=== PATIENT | male | born 1960 | race Caucasian/White ===

== ENCOUNTER 2022-05-25 15:16 | Outpatient (CLI) | payer BC, SELFPAY ==
[2022-05-25 15:56] LABS: Albumin* 4.8 g/dL (3.3-5.0); Chloride* 101 mmol/L (96-114); Sodium* 136 mmol/L (135-149)
[2022-05-25 15:57] LABS: Potassium* 5.2 mmol/L (3.6-5.1)
[2022-05-25 15:59] LABS: Alanine Aminotransferase* 25 U/L (4-50); Alkaline Phosphatase* 59 U/L (40-150); Aspartate Amino Transferase* 29 U/L (12-35); Bilirubin Total* 0.6 mg/dL (0.1-1.5); Blood Urea Nitrogen* 24 mg/dL (7-30); Carbon Dioxide* 28 mmol/L (20-32); Cholesterol* 229 mg/dL (90-199); Creatinine* 1.2 mg/dL (0.5-1.5); Estimated Glomerular Filt Rate 69 ml/min; Glucose* 113 mg/dL (60-115); Total Protein* 7.3 g/dL (6.0-8.3); Triglycerides* 146 mg/dL (40-149)
[2022-05-25 16:00] LABS: Calcium* 8.4 mg/dL (8.4-10.6); HDL Cholesterol* 56 mg/dL (>=40); LDL Cholesterol Calculated 144 mg/dL (<100)
[2022-05-25 19:50] LABS: PSA Screen* 1.57 ng/mL (0.10-4.00)
== END 2022-05-25 15:17 | disposition home or self-care (01) ==
PROVIDERS: PCP Family Medicine; Visit Provider Family Medicine
DX: Z00.00 Encounter for general adult medical examination without abnormal findings (principal); E78.5 Hyperlipidemia, unspecified; I10 Essential (primary) hypertension; Z12.5 Encounter for screening for malignant neoplasm of prostate
CPT/HCPCS: 80053; 80061; 84153

== ENCOUNTER 2022-09-01 09:29 | Outpatient (CLI) | payer BC, SELFPAY ==
[2022-09-01 14:56] LABS: Albumin* 4.2 g/dL (3.3-5.0)
[2022-09-01 14:59] LABS: Bilirubin Direct* 0.2 mg/dL (0.0-0.5); Bilirubin Total* 0.7 mg/dL (0.1-1.5); Cholesterol* 149 mg/dL (90-199); Total Protein* 6.6 g/dL (6.0-8.3)
[2022-09-01 15:00] LABS: Alanine Aminotransferase* 42 U/L (4-50); Alkaline Phosphatase* 40 U/L (40-150); Aspartate Amino Transferase* 33 U/L (12-35); HDL Cholesterol* 56 mg/dL (>=40); LDL Cholesterol Calculated 68 mg/dL (<100); Triglycerides* 127 mg/dL (40-149)
== END 2022-09-01 09:30 | disposition home or self-care (01) ==
PROVIDERS: PCP Family Medicine; Visit Provider Family Medicine
DX: E78.5 Hyperlipidemia, unspecified (principal)
CPT/HCPCS: 80061; 80076

== ENCOUNTER 2023-04-08 06:26 | Day surgery (SDC) | payer OTHER, BC, SELFPAY ==
[2023-04-08] VITALS (13 sets, daily range): BP systolic 112–158; BP diastolic 71–91; PULSE 61–69; RESP 14–16; TEMP 36.2–36.8; O2SAT 94–98; BMI 32.3
--- NOTE | 2023-04-08 07:32 | W.PM.H&PU ---
History & Physical Update History & Physical Update H&P Reviewed and patient assessed: No changes noted
--- NOTE | 2023-04-08 07:43 | PM.ORPRC ---
Procedure Note Date of procedure: 04/08/23 Procedure: PREOPERATIVE DIAGNOSIS: 1. Right carpal tunnel syndrome POSTOPERATIVE DIAGNOSIS: 1. Right carpal tunnel syndrome PROCEDURE: 1. Right open carpal tunnel release SURGEON: Rafy Victoria MD. NUCLEAR WEAPONS MECHANICAL SPECIALIST: Lizett Gaspar P.A.-C. - An dietary assistant was critical for this case to aid in patient positioning, tissue retraction, limb manipulation/positioning, and closure. ANESTHESIA: Local anesthetic IMPLANTS: None TOURNIQUET: 16 minutes at 250 mmHg COMPLICATIONS: None evident INDICATIONS: The patient is a pleasant 62-year-old male with history of bilateral, right worse than left carpal tunnel syndrome. Symptoms have not improved with conservative measures and patient interested in surgical for treatment for symptomatic relief. Prior to surgery risks and benefits of procedure were discussed with patient all questions were answered informed consent was obtained. DESCRIPTION OF PROCEDURE: Patient was seen preoperatively and operative site was marked. Patient was then brought to the operating room placed in supine position on the OR table. A tourniquet was placed on the patient's right arm and right upper extremity was prepped and draped in usual sterile fashion. A surgical time-out was performed confirming patient name, procedure, and location. The subcutaneous tissues overlying the right carpal tunnel were injected with combination of 1% lidocaine and 0.25% bupivacaine. Operative extremity was then elevated and exsanguinated with an Esmarch, and tourniquet was inflated to 250 mmHg. A skin incision measuring approximately 3-4 cm was made in line with the ring finger extending from the distal wrist flexion crease to Doan's cardinal line. Blunt dissection was used to dissect through subcutaneous tissues and palmar fascia. Transverse carpal ligament was identified and was sharply incised proximally with care taken to protect the underlying median nerve. The transverse carpal ligament was then sharply divided along its ulnar border using tenotomy scissors and a [place] ge[place] blade with care taken to protect the underlying median nerve. Once the transverse carpal ligament was divided, the antebrachial fascia was released proximally. Wound was then irrigated with normal saline and tourniquet was released. Total tourniquet time was 16 minutes. Hemostasis was achieved with bipolar electrocautery. Skin incision was closed with 4-0 nylon horizontal mattress sutures, and a sterile dressing was applied. Patient was then transferred to the recovery room in stable condition. POSTOPERATIVE PLAN: 1. Patient will be discharged to home day of surgery. 2. They were given instructions for wound care and finger range of motion exercises. 3. Return operating room in 2 weeks for left carpal tunnel release and right hand suture removal.
[2023-04-08] MEDS: LIDOCAINE 1% MDV 7 ML INJECTION (07:45)
[2023-04-08] MEDS: BUPIVACAINE 0.25% 30 ML 7 ML INJECTION (07:45)
[2023-04-08] MEDS: BACITRACIN OINTMENT BULK TUBE 1 APPLIC TOPICAL (08:20)
--- NOTE | 2023-04-08 08:59 | SUR.PHASEII ---
Pt tolerated ice water and verbalized readiness to be discharged home.
== END 2023-04-08 08:55 | disposition home or self-care (01) ==
PROVIDERS: PCP Family Medicine; Visit Provider Orthopaedic Surgery
PROC: (CPT 64721; principal; 2023-04-08 07:30)
DX: G56.01 Carpal tunnel syndrome, right upper limb (principal)
CPT/HCPCS: 64721; J0665

== ENCOUNTER 2023-04-20 07:54 | Day surgery (SDC) | payer OTHER, SELFPAY ==
[2023-04-20] VITALS (10 sets, daily range): BP systolic 110–128; BP diastolic 73–85; PULSE 61–74; RESP 16; TEMP 36.5–36.7; O2SAT 94–98; BMI 32.4
--- NOTE | 2023-04-20 08:22 | W.PM.H&PU ---
History & Physical Update History & Physical Update H&P Reviewed and patient assessed: No changes noted
--- NOTE | 2023-04-20 08:23 | P.ORPRC_ITS ---
Procedure Note Date of procedure: 04/20/23 Procedure: PREOPERATIVE DIAGNOSIS: 1. Left carpal tunnel syndrome POSTOPERATIVE DIAGNOSIS: 1. Left carpal tunnel syndrome PROCEDURE: 1. Left open carpal tunnel release SURGEON: Rafy Victoria MD. HOGSHEAD HEAD MATCHER: Osvaldo Dickerson P.A.-C. An family and divorce legal assistant was critical for this case to aid in patient positioning, tissue retraction, limb manipulation/positioning, and closure. ANESTHESIA: Local anesthetic IMPLANTS: None TOURNIQUET: Not used COMPLICATIONS: None evident ESTIMATED BLOOD LOSS: 2 mL INDICATIONS: The patient is a pleasant 62-year-old male with history of bilateral, right worse than left carpal tunnel syndrome. Symptoms have not improved with conservative measures and patient interested in surgical for treatment for symptomatic relief. Prior to surgery risks and benefits of procedure were discussed with patient all questions were answered informed consent was obtained. DESCRIPTION OF PROCEDURE: Patient was seen preoperatively and operative site was marked. Patient was then brought to the operating room placed in supine position on the OR table. A tourniquet was placed on the patient's left arm but was not used during course of procedure. The left upper extremity was prepped and draped in usual sterile fashion. A surgical time-out was performed confirming patient name, procedure, and location. The subcutaneous tissues overlying the left carpal tunnel were injected with combination of 1% lidocaine with epinephrine and 0.25% bupivacaine. A skin incision measuring approximately 3-4 cm was made in line with the ring finger extending from the distal wrist flexion crease to Doan's cardinal line. Bipolar electrocautery was used to achieve hemostasis. Blunt dissection was used to dissect through subcutaneous tissues and palmar fascia. Transverse carpal ligament was identified and was sharply incised proximally with care taken to protect the underlying median nerve. The transverse carpal ligament was then sharply divided along its ulnar border using tenotomy scissors and a [place] blade with care taken to protect the underlying median nerve. Once the transverse carpal ligament was divided, the antebrachial fascia was released proximally. Wound was then irrigated with normal saline. Skin incision was closed with 4-0 nylon horizontal mattress sutures, and a sterile dressing was applied. Patient was then transferred to the recovery room in stable condition. POSTOPERATIVE PLAN: 1. Patient will be discharged to home day of surgery. 2. They were given instructions for wound care and finger range of motion exercises. 3. Ice and Oral pain medications as needed for pain and swelling 4. Follow-up in Orthopedic clinic in 2 weeks for wound check and suture removal.
[2023-04-20] MEDS: BUPIVACAINE 0.25% 30 ML 5 ML INJECTION (08:39)
== END 2023-04-20 09:45 | disposition home or self-care (01) ==
PROVIDERS: PCP Family Medicine; Visit Provider Orthopaedic Surgery
PROC: (CPT 64721; principal; 2023-04-20 09:00)
DX: G56.02 Carpal tunnel syndrome, left upper limb (principal)
CPT/HCPCS: 64721; J0665

== ENCOUNTER 2023-08-16 10:05 | Outpatient (CLI) | payer BC, SELFPAY ==
--- NOTE | 2023-08-16 11:01 | W.ANESCHARGE ---
Anesthesia Charges Start Date/Time Anesthesia Start Date: 08/16/23 Anesthesia Start Time: 10:37 Stop Date/Time Anesthesia Stop Date: 08/16/23 Anesthesia Stop Time: 11:14
--- NOTE | 2023-08-16 11:16 | W.ANESCHARGE ---
Anesthesia Charges Start Date/Time Anesthesia Start Date: 08/16/23 Anesthesia Start Time: 10:37 Stop Date/Time Anesthesia Stop Date: 08/16/23 Anesthesia Stop Time: 11:14
== END 2023-08-16 10:06 | disposition home or self-care (01) ==
LOC: OP CLINIC 10:05
PROVIDERS: PCP Family Medicine; Visit Provider Surgery
DX: Z12.11 Encounter for screening for malignant neoplasm of colon (principal); K63.5 Polyp of colon; Z86.010 Personal history of colon polyps
CPT/HCPCS: 00811; 45385; 88305; J2704

== ENCOUNTER 2023-10-18 13:30 | Outpatient (RCR) | payer OTHER, BC, SELFPAY | END 2024-02-15 23:59 | disposition home or self-care (01) | PROVIDERS: PCP Family Medicine; Visit Provider Orthopaedic Surgery | DX: M75.82 Other shoulder lesions, left shoulder (principal); Z51.89 Encounter for other specified aftercare | CPT/HCPCS: 97110; 97162 ==

== ENCOUNTER 2023-10-27 07:59 | Outpatient (CLI) | payer BC, SELFPAY ==
--- OUTSIDE RECORDS SUMMARY | 2023-11-04 11:56 | XMS_ITS | Referral Summary ---
Author Name Unknown Organization [facility] Address [address] [place] [address] Care Team Providers Care Dye And Chemical Coordinator Name Role Phone Wilmer Mcleod MD Unavailable Lew Grove MD Unavailable Un available Pj Nelson MD Primary Care Provider [phone] Encounters Date Type Department Care Team Description 10/14/2023 Refill [facility] [id number] [place] [address] [address] [place] [address] Lew Grove MD Refill Request (rosuvastatin) from Last 3 Months Allergies Active Allergy Reactions Criticality Noted Date Comments No Known Drug Allergy Medications Medication Sig Dispensed Refills Start Date End Date Status amphetamine-dext roamphetamine (ADDERALL) 30 MG tablet Take 20 mg by mouth 2 times daily (Patient takes 2 X 20 mg = 40 mg dose) 0 Active citalopram (CELEXA) 20 MG tablet Take 20 mg by mouth every evening 0 Active traZODone (DESYREL) 50 MG tablet Take 100-150 mg by mouth nightly as needed for sleep 0 Active sildenafil (VIAGRA) 100 MG tablet Take 100 mg by mouth daily as needed 0 Active acetaminophen (TYLENOL) 325 MG tabletIndication s:S/P CABG (coronary artery bypass graft) Take 2 tablets (650 mg) by mouth every 4 hours as needed for mild pain 1 Bottle 0 03/03/2020 Active polyethylene glycol (MIRALAX) 17 g packetIndication s:S/P CABG (coronary artery bypass graft) Take 17 g by mouth daily as needed for constipation 14 packet 0 03/03/2020 Active furosemide (LASIX) 20 MG tabletIndication s:Lower extremity edema Take 1 tablet (20 mg) by mouth daily as needed (Leg swelling) 90 tablet 0 05/07/2020 Active metoprolol tartrate (LOPRESSOR) 50 MG tabletIndication s:S/P CABG (coronary artery bypass graft) Take 1 tablet (50 mg) by mouth 2 times daily 60 tablet 3 12/29/2021 Active aspirin (ASA) 81 MG EC tabletIndication s:Coronary artery disease involving autologous artery coronary bypass graft without angina pectoris Take 1 tablet (81 mg) by mouth daily 0 12/29/2021 Active ezetimibe (ZETIA) 10 MG tabletIndication s:Coronary artery disease involving [place] coronary artery of [place] heart without angina pectoris Take 1 tablet (10 mg) by mouth daily 90 tablet 3 12/29/2021 Active ibuprofen (ADVIL/MOTRIN) 200 MG capsule Take 200 mg by mouth every 4 hours as needed for fever 0 Active rosuvastatin (CRESTOR) 40 MG tabletIndication s:S/P CABG (coronary artery bypass graft) Take 1 tablet (40 mg) by mouth every evening 90 tablet 2 10/14/2023 Active rosuvastatin (CRESTOR) 40 MG tabletIndication s:S/P CABG (coronary artery bypass graft) Take 1 tablet (40 mg) by mouth every evening 90 tablet 2 01/25/2023 4 Discontinue d(Reorder (No AVS)) Active Problems Problem Noted Date Diagnosed Date Postoperative ileus (H) after heart surgery 09/2019 Fluid overload 03/03/2020 Transient hyperglycemia post procedure 0 Anemia due to blood loss, acute 03/03/2020 S/P CABG (coronary artery bypass graft) 02/25/20 CAD (coronary artery disease) 02/19/2020 Overview: Added automatically from request for surgery [id number] Coronary artery disease invo lving [place] coronary artery of [place] heart without angina pectoris 02/18/2020 Nonrheumatic aortic valve stenosis 02/18/2020 Benign essential hypertension 02/18/2020 Status post coronary angiogram 02/12/2020 Coronary artery calcification 02/04/2020 Overview: Added automatically from request for surgery [id number] Abnormal stress test 02/04/2020 Overview: Added automatically from request for surgery [id number] Gastroenteritis 09/27/2015 Ileus following gastrointestinal surgery 016 Social History Tobacco Use Types Packs/Day Years Used Date Smoking Tobacco: Former Cigarettes Q uit: 08/01/2014 Smokeless Tobacco: Never Alcohol Use Standard Drinks/Week Comments Yes 0 (1 standard drink = 0.6 oz pur e alcohol) 5 beers/weekend PHQ-2 Answer Date Recorded PHQ-2 Score 0 09/03/2022 Adolescent Education Answer Date Record ed Getting School Help Needed Not on file 05/05 Sex and Gender Information Value Date Recorded Sex Assigned at Not on file Gender Identity Not on file Sexual Orientation Not on file Last Filed Vital Signs Vital Sign Reading Time Taken Comments Blood Pressure 122/70 05/25/2023 7:39 AM CDT Pulse 80 05/25/2023 7:39 AM CDT Temperature 36.8 ??C (98.2 ??F) 02/06/2023 3:21 PM CD T Respiratory Rate 16 02/06/2023 3:21 PM CDT Oxygen Saturation 96% 05/25/2023 7:39 AM CDT Inhaled Oxygen Concentration - - Weight 97.1 kg (214 lb) 05/25/2023 7:39 AM CDT Height 167.6 cm (5' 6) 05/25/2023 7:39 AM CDT Body Mass Index 34.54 05/25/2023 7:39 AM CDT Plan of Treatment Not on file Advance Directives For more information, please contact: [phone] Latest Code Status on File Code Status Date Activated Date Inactivated Comments Full Code 03/03/2020 9:34 AM Question Answer Comments Code status determined by: Discussion wi th patient/ legal decision maker Code Status History Code Status Date Activated Date Inactivated Comments Full Code 02/25/2020 1:44 PM 03/03/2020 9:34 AM All ba sic and advanced life-sustaining interventions are performed as appropriate Question Answer Comments Code status determined by: Discussion with patient/ legal decision maker Full Code 10/02/2015 3:57 PM 02/12/2020 9:44 AM Full Code 09/26/2015 9:46 PM 10/02/2015 3:57 PM Care Teams Dye And Chemical Coordinator Relationship Specialty Start Date End Date Pj Nelson MD [facility] [address] [address] PCP - General Family Medicine 05/23/23 [place] [address] [place] [address] Assigned PCP 11/06/21 [place] [address] [place] [address] Assigned Heart and Vascular Provider 09/11/22
--- OUTSIDE RECORDS SUMMARY | 2023-11-04 11:56 | XMS_ITS | Encounter Summary ---
Author Name Unknown Organization [facility] Address [address] [place] [address] Care Team Providers Care Mail Teller Name Role Phone Wilmer Mcleod MD Unavailable Lew Grove MD Unavailable Un available Pj Nelson MD Primary Care Provider [phone] Reason for Visit * Reason Onset Date Comments Refill Request 10/14/2023 rosuvastatin Encounter Details Date Type Department Care Team (Late st Contact Info) Description 10/14/2023 Refill [facility] [address] [place] [address] Lew Grove MD Refill Request (rosuvastatin) Social History Tobacco Use Types Packs/Day Years [...] on file Sexual Orientation Not on file documented as of this encounter Miscellaneous Notes * Telephone Encounter - Jessica Perrin RN - 10/14/2023 11:07 AM CDT [facility] Refill Guideline reviewed. Medication meets criteria for refill. documented in this encounter Plan of Treatment Not on file documented as of this encounter Visit Diagnoses Diagnosis S/P CABG (coronary artery bypass graft) Postsurgical aortocoronary bypass status documented in this encounter Care Teams Mail Teller Relationship Specialty Start Date End Date Pj Nelson MD [facility] [address] [address] PCP - General Family Medicine 05/23/23 [place] [address] [place] [address] Assigned PCP 11/06/21 [place] [address] [place] [address] Assigned Heart and Vascular Provider 09/11/22 documented as of this encounter
--- OUTSIDE RECORDS SUMMARY | 2023-11-04 11:56 | XMS_ITS | Encounter Summary ---
Author Name Unknown Organization [facility] Address [facility] [place] [address] Care Team Providers Care Prison Teacher Name Role Phone Negrito Farrar Primary Care Provider [phone] Lew Grove MD Unavailable Un available Keyanna Hopkins PA-C Unavailable Unav ailable Lew Grove MD Unavailable Un available Wilmer Mcleod MD Unavailable Olga Enriquez APRN BUDGET DIRECTOR Unavailable Keyanna Hopkins PA-C Unavailable Unav ailable Lew Grove MD Unavailable Un available Pj Nelson MD Primary Care Provider [phone] Reason for Referral * Diagnostic Imaging Ultrasound (Routine) - Closed Specialty Diagnoses / Procedures Referred By Trudy t Referred To Contact Radiology. Diagnoses Coronary artery disease of cabaz[place] heart with stable angina pectoris, unspecified vessel or lesion type (H24) Procedures US Lower Extremity Venous Mapping Bilateral Orville Aguilar MD [address] [place] [address] Ultrasound [address] [place] [address] Referral ID Status Reason Start Date Expiration Date Visits Re quested Visits Authorized [id number] Closed 02/18/2020 02/17/2021 1 1 Encounter Details Date Type Department Care Team (Late st Contact Info) Description 02/18/2020 Orders Only [facility] [address] [id number] Orville Aguilar MD [address] [place] [address] Coronary artery disease of cabazon heart with stable angina pectoris, unspecified vessel or lesion type (H) (Primary Dx) Social History Tobacco Use Types Packs/Day Years Used Date Smoking Tobacco: Former Cigarettes Q uit: 08/01/2014 Smokeless Tobacco: Never Alcohol Use Standard Drinks/Week Comments Yes 0 (1 standard drink = 0.6 oz pur e alcohol) 5 beers/weekend Sex and Gender Information Value Date Recorded Sex Assigned at Not on file Gender Identity Not on file Sexual Orientation Not on file COVID-19 Exposure Response Date Recorded In the last month, have you been in contact with someone who was confirmed or suspected to have Coronavirus / COVID-19? No / Unsure 02/21/2020 7:11 AM CDT documented as of this encounter Plan of Treatment Not on file documented as of this encounter Results * US Lower Extremity Venous Mapping Bilateral (02/21/2020 8:15 AM CDT) Anatomical Region Laterality Modality Vascular, Arm, Forearm Ultrasoun d Impressions 02/21/2020 11:41 AM CDT IMPRESSION: Bilateral greater saphenous vein measurements as described. BABATUNDE SHEPHERD MD Narrative 02/21/2020 11:41 AM CDT ULTRASOUND BILATERAL LOWER EXTREMITY VENOUS MAPPING 02/21/2020 8:15 AM HISTORY: ??59-year-old patient with history of coronary arterial disease, request made for vein mapping for coronary arterial bypass graft. FINDINGS: The left greater saphenous vein is 2.3 to 3.6 mm throughout the thigh and 1.8 to 2.9 mm at and below the level of the knee. At least four branches noted throughout the length. The right greater saphenous vein ranges from 2.1 to 3.9 mm throughout the thigh and 2.5 to 3 mm at and below the level of the knee. A least three branches noted along the length. Procedure Note Babatunde Shepherd MD - 02/21/2020 ULTRASOUND BILATERAL LOWER EXTREMITY VENOUS MAPPING 02/21/2020 8:15 AM HISTORY: 59-year-old patient with history of coronary arterial disease, request made for vein mapping for coronary arterial bypass graft. FINDINGS: The left greater saphenous vein is 2.3 to 3.6 mm throughout the thigh and 1.8 to 2.9 mm at and below the level of the knee. At least four branches noted throughout the length. The right greater saphenous vein ranges from 2.1 to 3.9 mm throughout the thigh and 2.5 to 3 mm at and below the level of the knee. A least three branches noted along the length. IMPRESSION: Bilateral greater saphenous vein measurements as described. BABATUNDE SHEPHERD MD Orville Aguilar MD IMG US ORDERAB LES * ABO/Rh type and screen (02/21/2020 7:45 AM CDT) Units Ordered 4 02/25/2020 5:46 AM CDT [facility] ABO A 02/21/2020 8:47 AM CDT [facility] RH(D) Pos [facility] Antibody Screen Neg 02/21/2020 8:47 AM CDT [facility] Test Valid Only At [facility] 02/21/2020 7:57 AM CDT [facility] Specimen Expires 02/26/2020 02/25/2020 5:46 AM CDT [facility] Crossmatch Red Blood Cells 02/25/2020 5:46 AM CDT [facility] Blood Bank Comment Preadmit order received in blood bank 02/21/2020 9:44 AM CDT [facility] Blood specimen (specimen) 02/21/2020 7:45 AM CDT 02/21/2020 7:54 AM CDT Orville Aguilar MD LAB - BLOOD BA NK TEST ORDER [facility] [address] [address], [place] [phone] * (ABNORMAL) A1C FUTURE anytime (02/21/2020 7:45 AM CDT) Hemoglobin A1C 6.1(H) 0 - 5.6 % 02/21/2020 8:13 AM CDT [facility] Comment: Normal <5.7% Prediabetes 5.7-6.4% ??Diabetes 6.5% or higher - adopted from ADA consensus guidelines. Blood specimen (specimen) 02/21/2020 7:45 AM CDT 02/21/2020 7:54 AM CDT Orville Aguilar MD LAB - BLOOD OR DERABLES [facility] [address] [place] [address], [facility] [phone] * CBC with platelets FUTURE anytime (02/21/2020 7:45 AM CDT) Pathologist [facility] WBC 4.3 4.0 - 11.0 10e9/L 02/21/2020 7:57 AM CDT [facility] RBC Count 4.78 4.4 - 5.9 10e12/L 02/21/2020 7:57 AM T [facility] Hemoglobin 14.8 13.3 - 17.7 g/dL 02/21/2020 7:57 AM [facility] Hematocrit 43.2 40.0 - 53.0 % 02/21/2020 7:57 AM [facility] MCV 90 78 - 100 fl 02/21/2020 7:57 AM CDT [facility] MCH 31.0 26.5 - 33.0 pg 02/21/2020 7:57 AM T [facility] MCHC 34.3 31.5 - 36.5 g/dL 02/21/2020 7:57 AM [facility] RDW 13.0 10.0 - 15.0 % 02/21/2020 7:57 AM [facility] Platelet Count 295 150 - 450 10e9/L 02/21/2020 7:57 AM T [facility] Blood specimen (specimen) 02/21/2020 7:45 AM CDT 02/21/2020 7:54 AM CDT Orville Aguilar MD LAB - BLOOD OR DERABLES [facility] [address] [place] [address], [facility] [phone] * Comprehensive metabolic panel FUTURE anytime (02/21/2020 7:45 AM CDT) Sodium 140 133 - 144 mmol/L 02/21/2020 8:07 AM T [facility] Potassium 3.9 3.4 - 5.3 mmol/L 02/21/2020 8:07 AM [facility] Chloride 108 94 - 109 mmol/L 02/21/2020 8:07 AM [facility] Carbon Dioxide 28 20 - 32 mmol/L 02/21/2020 8:18 AM [facility] Anion Gap 4 3 - 14 mmol/L 02/21/2020 8:18 AM [facility] Glucose 97 70 - 99 mg/dL 02/21/2020 8:18 AM [facility] Urea Nitrogen 15 7 - 30 mg/dL 02/21/2020 8:18 AM [facility] Creatinine 1.07 0.66 - 1.25 mg/dL 02/21/2020 8:18 AM [facility] GFR Estimate 76 >60 mL/min/{1. 73_m2} 02/21/2020 8:18 AM [facility] Comment: Non GFR Calc Starting 07/18/2018, serum creatinine based estimated GFR (eGFR) will be calculated using the Chronic Kidney Disease Epidemiology Collaboration (CKD-EPI) equation. GFR Estimate If Black 88 >60 mL/min/{1. 73_m2} 02/21/2020 8:18 AM [facility] Comment: GFR Calc Starting 07/18/2018, serum creatinine based estimated GFR (eGFR) will be calculated using the Chronic Kidney Disease Epidemiology Collaboration (CKD-EPI) equation. Calcium 8.5 8.5 - 10.1 mg/dL 02/21/2020 8:18 AM [facility] Bilirubin Total 0.3 0.2 - 1.3 mg/dL 02/21/2020 8:18 AM CDT [facility] Albumin 3.6 3.4 - 5.0 g/dL 02/21/2020 8:18 AM CDT [facility] Protein Total 6.9 6.8 - 8.8 g/dL 02/21/2020 8:18 AM T [facility] Alkaline Phosphatase 48 40 - 150 U/L 02/21/2020 8:18 AM T [facility] ALT 34 0 - 70 U/L 02/21/2020 8:18 AM CDT [facility] AST 19 0 - 45 U/L 02/21/2020 8:18 AM [facility] Blood specimen (specimen) 02/21/2020 7:45 AM CDT 02/21/2020 7:54 AM CDT Orville Aguilar MD LAB - BLOOD OR DERABLES Performing Organization Address City/State/[facility] Co de Phone Number [facility] [address] [place], [place] [address] [phone] documented in this encounter Visit Diagnoses Diagnosis Coronary artery disease of cabazon heart with stable angina pectoris, unspecified vessel or lesion type (H24)- Primary Coronary artery disease of cabaz[place] heart with stable angina pectoris, unspecified vessel or lesion type (H24) documented in this encounter Care Teams Prison Teacher Relationship Specialty Start Date End Date Negrito Farrar [address] [address] PCP - General Family Practice 05/21/18 05/22/[address] [facility] [address] [address] PCP - General Family Medicine 05/23/23 Lew Grove MD Assigned Heart and Vascular Provider 05/23/20 04/18/21 Keyanna Hopknis PA-C Assigned Heart and Vascular Provider 04/19/21 08/22/21 Lew Grove MD Assigned Heart and Vascular Provider 08/23/21 01/01/22 [place] [address] [place] [address] Assigned PCP 11/06/21 Olga Enriquez APRN CNP [address] [place] [address] Assigned Heart and Vascular Provider 01/02/22 06/04/22 Keyanna Hopkins PA-C Assigned Heart and Vascular Provider 06/05/22 09/10/22 Lew Grove MD [facility] [place] [address] Assigned Heart and Vascular Provider 09/11/22 documented as of this encounter
--- OUTSIDE RECORDS SUMMARY | 2023-11-04 11:56 | XMS_ITS | Encounter Summary ---
Author Name Unknown Organization [place] Address [facility] [place] [address] Care Team Providers Care Head Piece Assembler Name Role Phone Negrito Farrar Primary Care Provider + [phone] Lew Grove MD Unavailable Un available Keyanna Hopkins PA-C Unavailable Unav ailable Lew Grove MD Unavailable Un available Wilmer Mcleod MD Unavailable Olga Enriquez APRN ANIMATOR Unavailable Keyanna Hopkins PA-C Unavailable Unav ailable Lew Grove MD Unavailable Un available Pj Nelson MD Primary Care Provider [phone] Reason for Referral * Diagnostic Imaging XR (Routine) - Closed Specialty Diagnoses / Procedures Referred By Contwyatt t Referred To Contact Radiology. 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, unspecified vessel or lesion type (H24) Procedures XR Chest 2 Views Orville Aguilar MD [address] [place] [address] Xray [address] [place] [id number] Referral ID Status Reason Start Date Expiration Date Visits Re quested Visits Authorized [id number] Closed 02/19/2020 02/18/2021 1 1 Encounter Details Date Type Department Care Team (Late st Contact Info) Description 02/19/2020 Orders Only [facility] PHYS STANDARD [address] [phone] Orville Aguilar MD [address] [place] [id number] 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 Heart size and pulmonary vessels are normal. No acute findings. JO ANN SPEAR MD Narrative 02/21/2020 9:10 AM CDT XR CHEST 2 VW 02/21/2020 8:15 AM ?? INDICATION: Coronary artery disease COMPARISON: 12/06/2017, CT 02/27/2018 Procedure Note Jo Ann Spear MD - 02/21/2020 XR CHEST 2 VW 02/21/2020 8:15 AM INDICATION: Coronary artery disease COMPARISON: 12/06/2017, CT 02/27/2018 IMPRESSION: Mild scarring in the lingula and small bilateral pulmonary nodules have not appreciably changed. Heart size and pulmonary vessels are normal. No acute findings. JO ANN SPEAR MD Orville Aguilar MD IMG DIAGNOSTIC IMAGING ORDERABLES documented in this encounter Visit Diagnoses Diagnosis Coronary artery disease of [place] heart with stable angina pectoris, unspecified vessel or lesion type (H24)- Primary Coronary artery disease of [place] heart with stable angina pectoris, unspecified vessel or lesion type (H24) documented in this encounter Care Teams Head Piece Assembler Relationship Specialty Start Date End Date Negrito Farrar [address] [id number] PCP - General Family Practice 05/21/18 05/22/23 Pj Nelson MD [facility] [address] [address] PCP - General Family Medicine 05/23/23 Lew Grove MD Assigned Heart and Vascular Provider 05/23/20 04/18/21 Keyanna Hopkins PA-C Assigned Heart and Vascular Provider 04/19/21 08/22/21 Lew Grove MD Assigned Heart and Vascular Provider 08/23/21 01/01/22 [place] [address] [place] [address] Assigned PCP 11/06/21 Olga Enriquez APRN CNP [address] [place] [address] Assigned Heart and Vascular Provider 01/02/22 06/04/22 Keyanna Hopkins PATracyC Assigned Heart and Vascular Provider 06/05/22 09/10/22 Lew Grove MD [address] [place] [address] Assigned Heart and Vascular Provider 09/11/22 documented as of this encounter
--- OUTSIDE RECORDS SUMMARY | 2023-11-04 11:56 | XMS_ITS | Encounter Summary ---
Author Name Unknown Organization [place] Address [facility] [place] [address] Care Team Providers Care Title 1 Tutor Name Role Phone Negrito Farrar Miguel Primary Care Provider + [phone] Wilmer Mcelod MD Unavailable Keyanna Hopkins PA-C Unavailable Unav ailable Lew Grove MD Unavailable Un available Pj Nelson MD Primary Care Provider [phone] Encounter Details Date Type Department Care Team (Late st Contact Info) Description 09/01/2022 External Order Results [facility] [address] [place] [address] Outside, Provider Social History Tobacco Use Types Packs/Day Years Used Date Smoking Tobacco: Former Cigarettes Q uit: 08/01/2014 Smokeless Tobacco: Never Alcohol Use Standard Drinks/Week Comments Yes 0 (1 standard drink = 0.6 oz pur e alcohol) 5 beers/weekend PHQ-2 Answer Date Recorded PHQ-2 Score 0 09/03/2022 Sex and Gender Information Value Date Recorded Sex Assigned at Not on file Gender Identity Not on file Sexual Orientation Not on file COVID-19 Exposure Response Date Recorded In the last 10 days, have yo u been in contact with someone who was confirmed or suspected to have Coronavirus/COVID-19? No / Unsure 09/03/2022 2:09 PM CLEARING DISTRIBUTION CLERK documented as of this encounter Plan of Treatment Not on file documented as of this encounter Procedures Procedure Name Priority Date/Time Associated Diagnosis Comments LIPID PROFILE Routine 09/01/2022 8:04 AM CLEARING DISTRIBUTION CLERK HEPATIC FUNCTION PANEL Routine 09/01/2022 8:04 AM CLEARING DISTRIBUTION CLERK documented in this encounter Results * Lipid Profile (09/01/2022 8:04 AM CLEARING DISTRIBUTION CLERK) Triglycerides (External) 127 40 - 149 mg/dL NON-INTERFACE D (ONBASE SCANS) Cholesterol (External) 149 90 - 199 mg/dL NON-INTERFACE D (ONBASE SCANS) LDL Cholesterol Calculated (External) 68 <100 mg/dL NON-INTERFACE D (ONBASE SCANS) HDL Cholesterol (External) 56 >=40 mg/dL NON-INTERFACE D (ONBASE SCANS) Blood BLOOD SPECIMEN / Unknown 09/01/2022 8:04 AM CLEARING DISTRIBUTION CLERK Narrative JASONE PFT - 09/06/2022 12:21 PM CLEARING DISTRIBUTION CLERK Verified by Nate Aranda on 09/06/2022. Provider Outside LAB - BLOOD ORDERABL ES JUSTIN PFT NON-INTERFACED (ONBASE SCANS) * Hepatic function panel (09/01/2022 8:04 AM CLEARING DISTRIBUTION CLERK) Protein Total (External) 6.6 6.0 - 8.3 g/dL NON-INTERFACED (ONBASE SCANS) Albumin (External) 4.2 3.3 - 5.0 g/dL NON-INTERFACED (ONBASE SCANS) Bilirubin Total (External) 0.7 0.1 - 1.3 mg/dL NON-INTERFACED (ONBASE SCANS) Bilirubin Direct (External) 0.2 0.0 - 0.5 mg/dL NON-INTERFACED (ONBASE SCANS) AST (External) 33 12 - 35 U/L NON-INTERFACED (ONBASE SCANS) ALT (External) 42 4 - 50 U/L NON- INTERFACED (ONBASE SCANS) Alk Phosphatase (External) 40 40 - 150 U/L NON-INTERFACED (ONBASE SCANS) Blood BLOOD SPECIMEN / Unknown 09/01/2022 8:04 AM CLEARING DISTRIBUTION CLERK Narrative JASONE PFT - 09/06/2022 12:21 PM CLEARING DISTRIBUTION CLERK Verified by Nate Aranda on 09/06/2022. Provider Outside LAB - BLOOD ORDERABL ES BREEZE PFT NON-INTERFACED (ONBASE SCANS) documented in this encounter Visit Diagnoses Not on filedocumented in this encounter Care Teams Title 1 Tutor Relationship Specialty Start Date End Date Charan, Negrito Miguel [address] [address] PCP - General Family Practice 05/21/18 05/22/23 Pj Nelson MD [facility] [address] [address] PCP - General Family Medicine 05/23/23 [place] [address] [place] [address] Assigned PCP 11/06/21 Keyanna Hopkins PA-C Assigned Heart and Vascular Provider 06/05/22 09/10/22 Lew Grove MD Assigned Heart and Vascular Provider 09/11/22 documented as of this encounter
--- OUTSIDE RECORDS SUMMARY | 2023-11-04 11:56 | XMS_ITS | Clinical Summary ---
Author Name Unknown Organization [facility] Address [place], [place] [address] Care Team Providers Care Tester Equipment Name Role Phone , Not On File Primary Care Provider Unavailabl e Allergies No known active allergies Medications Medication Sig Dispensed Refills Start Date End Date Status atorvastatin (LIPITOR) 40 mg tablet Take 1 tablet by mouth at bedtime. 3 10/21/2015 Active citalopram (CELEXA) 10 mg tablet Take 1 tablet by mouth once daily. 2 11/26/2015 Active traZODone (DESYREL) 50 mg tablet Take 1-3 tablets by mouth at bedtime. 1 11/10/2015 Active DEXTROAMPHETAMINE/AMP HETAMINE (ADDERALL ORAL) Take 30 mg by mouth once daily. Active fluticasone (50 mcg per actuation) nasal solution (FLONASE) Inhale 1 [place] into both nostrils once daily. Active Encounters Date Type Department Care Team Description 08/16/2023 Lab Requisition [facility] [phone] Cammy Aponte MD from Last 3 Months Social History Tobacco Use Types Packs/Day Years Used Date Smoking Tobacco: Never Assessed Sex and Gender Information Value Date Recorded Sex Assigned at Not on file Gender Identity Not on file Sexual Orientation Not on file Obstetrics History Last Filed Vital Signs Vital Sign Reading Time Taken Comments Blood Pressure 114/63 12/01/2015 11:40 AM CDT Pulse 99 12/01/2015 11:52 AM CDT Temperature 35.6 ??C (96.1 ??F) 12/01/2015 9:40 AM CD T Respiratory Rate 18 12/01/2015 11:52 AM CDT Oxygen Saturation 94% 12/01/2015 11:52 AM CDT Inhaled Oxygen Concentration - - Weight 83 kg (183 lb) 12/01/2015 6:55 AM CDT Height 167.6 cm (5' 6) 12/01/2015 6:55 AM CDT Body Mass Index 29.54 12/01/2015 6:55 AM CDT Plan of Treatment Not on file Procedures Procedure Name Priority Date/Time Associated Diagnosis Comments LAB TRACKING EVENT Routine 08/16/2023 11 :00 AM STOKER INSTALLATION MECHANIC PATH TISSUE EXAM Routine 08/16/2023 11:0 0 AM STOKER INSTALLATION MECHANIC from Last 3 Months Results * LAB TRACKING EVENT (08/16/2023 11:00 AM STOKER INSTALLATION MECHANIC) Other (Other) Client Collect / Unknown 08/16/2023 11:00 AM STOKER INSTALLATION MECHANIC 08/16/2023 9:22 PM STOKER INSTALLATION MECHANIC Cammy Aponte MD LAB BILL ONLY [facility] [address] [place], [place] [id number], * PATH TISSUE EXAM (08/16/2023 11:00 AM STOKER INSTALLATION MECHANIC) Case Report Pathology Report ?Case: [id number] ? Authorizing Provider: ??Cammy Aponte MD ?Collected: ? 08/16/2023 1100 ? Ordering Location: ? [facility] ?Received: ?08/17/2023 0908 ? Pathologist: ? Sanjana Gonzalez MD ? Specimens: ?? A) - ? B) - ? C) - ? 08/18/2023 3:05 PM [facility] Final Diagnosis A) COLON, ASCENDING, POLYPECTOMIES: 1. Tubular adenoma (1) and normal colonic mucosa (clinically, 2 polyps) 2. Negative for high grade dysplasia 3. Per the colonoscopy report: ?? a. Polyp sizes: 3 mm - 7 mm ?? b. Resection: Complete ?? c. Retrieval: Complete B) COLON, HEPATIC FLEXURE, POLYPECTOMIES: 1. Tubular adenoma (1) and normal colonic mucosa (clinically, 2 polyps) 2. Negative for high grade dysplasia 3. Per the colonoscopy report: ?? a. Polyp sizes: 2 mm - 5 mm ?? b. Resection: Complete ?? c. Retrieval: Complete C) COLON, SIGMOID, POLYPECTOMY: 1. Hyperplastic polyp 08/18/2023 3:05 PM [facility] Clinical Information History of colon polyp(s) 08/18/2023 3:05 PM STOKER INSTALLATION MECHANIC [facility] Gross Description A) Received in formalin are 18 [place] mucosal fragments ranging from 2 mm to 6 mm in greatest dimension, which are entirely submitted in two cassettes. It is labeled with the patient's name and designated colon-ascendin g polyps. B) Received in formalin are 5 [place] mucosal fragments ranging from 3 mm to 10 mm in greatest dimension, which are entirely submitted in one cassette. It is labeled with the patient's name and designated colon-hepatic flexure polyp. C) Received in formalin is a [place] mucosal fragment measuring 5 mm in greatest dimension, which is entirely submitted in one cassette. It is labeled with the patient's name and designated colon-sigmoid polyp. Betina Caputo 08/17/2023 9:20 AM 08/18/2023 3:05 PM STOKER INSTALLATION MECHANIC [facility] Microscopic Description The final diagnosis is based on microscopic examination of appropriate sections of all specimens. Deeper levels were examined on blocks A1, A2, and B1. 08/18/2023 3:05 PM STOKER INSTALLATION MECHANIC [facility] Additional Information Interpreted at [facility], [facility] Laboratory - [address] [facility] [address] [facility] [address], [place] [address] 08/18/2023 3:05 PM STOKER INSTALLATION MECHANIC [facility] Other 08/16/2023 11:0 0 AM STOKER INSTALLATION MECHANIC 08/17/2023 9:08 AM STOKER INSTALLATION MECHANIC Specimen (specimen) 08/16/2023 11:00 AM STOKER INSTALLATION MECHANIC 08/17/2023 9:08 AM STOKER INSTALLATION MECHANIC Specimen (specimen) 08/16/2023 11:00 AM STOKER INSTALLATION MECHANIC 08/17/2023 9:08 AM STOKER INSTALLATION MECHANIC Cammy Aponte MD PATHOLOGY/CYTOLOGY [facility] [address] [place] [address], from Last 3 Months Care Teams Tester Equipment Relationship Specialty Start Date End Date , Not On File PCP - General 11/28/15
--- OUTSIDE RECORDS SUMMARY | 2023-11-04 11:56 | XMS_ITS | Clinical Summary ---
Author Name Unknown Organization [place] Address [address] [place] [address] Care Team Providers Care Bank Reconciliator Name Role Phone Wilmer Mcleod MD Unavailable Lew Grove MD Unavailable Un available Pj Nelson MD Primary Care Provider [phone] Allergies Active Allergy Reactions Criticality Noted Date [...] 10 MG tabletIndication s:Coronary artery disease involving [place] coronary artery of [place] heart without angina pectoris Take 1 tablet [...] Overview: Added automatically from request for surgery [id number] Coronary artery disease invo lving hopi coronary artery of [place] heart without angina pectoris 02/18/2020 Nonrheumatic aortic valve stenosis 02/18/2020 Benign essential hypertension 02/18/2020 Status post coronary angiogram 02/12/2020 Coronary artery calcification 02/04/2020 Overview: Added automatically from request for surgery [id number] Abnormal stress test 02/04/2020 Overview: Added automatically from request for surgery [id number] Gastroenteritis 09/27/2015 Ileus following gastrointestinal surgery 016 Encounters Date Type Department Care Team Description 10/14/[address] [place] [address] Lew Grove MD Refill Request (rosuvastatin) from Last 3 Months Family History Medical History Relation Comments Prostate Cancer Father Hypertension Mother Depression No family hx of Relation Status Comments Father Mother Social History Tobacco Use Types Packs/Day Years [...] 05/25/2023 7:39 AM CDT Plan of Treatment Health Maintenance Due Date Last Done Comments ADVANCE CARE PLANNING 1961 ANNUAL REVIEW OF HM ORDERS 1961 CT COLONOGRAPHY 1961 FIT 1961 FLEX SIG 1961 YEARLY PREVENTIVE VISIT 1961 sDNA (Cologuard) 1961 Pneumococcal Vaccine: Pediatrics (0 to 5 Years) and At-Risk Patients (6 to 64 Years) (1 of 2 - PCV) 1967 HIV SCREENING 1976 HEPATITIS C SCREENING 1979 HEPATITIS A IMMUNIZATION (1 of 2 - Risk 2-dose series) 1980 ZOSTER IMMUNIZATION (1 of 2) 2011 LUNG CANCER SCREENING 02/27/2019 02/27/2018, 016 HEPATITIS B IMMUNIZATION (1 of 3 - Risk 3-dose series) 2021 RSV VACCINE ( & 60+) (1 - 1-dose 60+ series) 2021 COVID-19 Vaccine (2 - 2022- season) 2023 10/29/2020 INFLUENZA VACCINE (#1) 2023 , 06/01/2022, 05/12/2018, Additional history exists PHQ-2 (once per calendar year) 2023 09/03/2022, 12/03/2021 LIPID 05/23/2024 05/23/2023, 12/31, 09/01/2022, Additional history exists GLUCOSE 12/08/2024 12/08/2021, 04/01, 03/11/2020, Additional history exists DTAP/TDAP/TD IMMUNIZATION (2 - Td or Tdap) 07/10/2025 07/10/2015, 01/23/2011, 01/23/2011, Additional history exists COLONOSCOPY 04/01/2028 04/01/2018 COLORECTAL CANCER SCREENING 04/01/2028 HPV IMMUNIZATION Aged Out No longer e ligible based on patient's age to complete this topic IPV IMMUNIZATION Aged Out No longer e ligible based on patient's age to complete this topic MENINGITIS IMMUNIZATION Aged Out No l onger eligible based on patient's age to complete this topic RSV MONOCLONAL ANTIBODY Aged Out No l onger eligible based on patient's age to complete this topic Advance Directives For more information, please contact: [phone] Latest Code Status on File Code Status [...] 9:46 PM 10/02/2015 3:57 PM Care Teams Bank Reconciliator Relationship Specialty Start Date End Date Pj Nelson MD [facility] [address] [address] PCP - General Family Medicine 05/23/23 [place] [address] [place] [address] Assigned PCP 11/06/21 [place] [address] [place] [address] Assigned Heart and Vascular Provider 09/11/22
--- OUTSIDE RECORDS SUMMARY | 2023-11-04 11:56 | XMS_ITS | Encounter Summary ---
Author Name Unknown Organization [place] Address [facility] [place] [address] Care Team Providers Care Copy Chief Name Role Phone Negrito Farrar Primary Care Provider + [phone] Lew Grove MD Unavailable Un available Keyanna Hopkins PA-C Unavailable Unav ailable Lew Grove MD Unavailable Un available Wilmer Mcleod MD Unavailable Olga Enriquez APRN [employer] Unavailable Keyanna Hopkins PA-C Unavailable Unav ailable Lew Grove MD Unavailable Un available Pj Nelson MD Primary Care Provider [phone] Encounter Details Date Type Department Care Team (Late st Contact Info) Description 02/19/2020 Orders Only SH PHYS STANDARD [address] [phone] Orville Aguilar MD [address] [place] [address] Social History Tobacco Use Types Packs/Day Years [...] documented as of this encounter Visit Diagnoses Not on filedocumented in this encounter Care Teams Copy Chief Relationship Specialty Start Date End Date Negrito Farrar [address] [address] PCP - General Family Practice 05/21/18 05/22/23 Pj Nelson MD [facility] [address] [place] [address] PCP - General Family Medicine 05/23/23 Lew Grove MD Assigned Heart and Vascular Provider 05/23/20 04/18/21 Keyanna Hopkins PA-C Assigned Heart and Vascular Provider 04/19/21 08/22/21 Lew Grove MD Assigned Heart and Vascular Provider 08/23/21 01/01/22 [place] [address] [place] [address] Assigned PCP 11/06/21 Olga Enriquez APRN CNP [address] [place] [address] Assigned Heart and Vascular Provider 01/02/22 06/04/22 Keyanna Hopkins PA-C Assigned Heart and Vascular Provider 06/05/22 09/10/22 Lew Grove MD [facility] [place] [address] Assigned Heart and Vascular Provider 09/11/22 documented as of this encounter
== END 2023-10-27 08:00 | disposition home or self-care (01) ==
LOC: NFLDREF 10-28 06:42
PROVIDERS: PCP Family Medicine; Referring Provider Family Medicine; Visit Provider Family Medicine
DX: Z00.00 Encounter for general adult medical examination without abnormal findings (principal); I10 Essential (primary) hypertension; Z12.5 Encounter for screening for malignant neoplasm of prostate; Z13.1 Encounter for screening for diabetes mellitus; Z13.6 Encounter for screening for cardiovascular disorders
CPT/HCPCS: 80053; 80061; G0103